=== PATIENT | male | born 1965 | race Caucasian/White ===

== ENCOUNTER → 2016-08-01 | Outpatient (CLI) | payer OTHER ==
[2016-08-01 15:44] LABS: MEAN CELL VOLUME 90.9 fL (80-100); MEAN CORPUSCULAR HEMOGLOBIN 30.7 pg (25-34); MEAN CORPUSCULAR HGB CONC 33.7 g/dl (32-36); PLATELET COUNT 202 K/uL (130-400); RED BLOOD COUNT 4.73 M/uL (4.7-6.1); WHITE BLOOD COUNT 8.25 K/uL (4.8-10.8)
[2016-08-01 16:08] LABS: BLOOD UREA NITROGEN 19 mg/dl (7-18); BUN/CREATININE RATIO 15.8 (10-20); CALCIUM 8.7 mg/dl (8.5-10.1); CARBON DIOXIDE 27 mmol/L (21-32); CHLORIDE 106 mmol/L (98-107); GLUCOSE 95 mg/dl (70-99); POTASSIUM 3.9 mmol/L (3.5-5.1); SODIUM 141 mmol/L (136-145)
[2016-08-01 16:17] LABS: PROLACTIN 5.28 ng/mL
[2016-08-01 16:18] LABS: FERRITIN 201.4 ng/ml (8.0-388.0); TOTAL IRON BINDING CAPACITY 370 mcg/dl (250-450)
[2016-08-02 06:36] LABS: ESTIMATED AVERAGE GLUCOSE 137 mg/dl; HA1C FLAG Normal (Normal)
[2016-08-06 00:40] LABS: MICROSOMAL AB <1 IU/ML (<9); SEX HORMONE BINDING GLOB 26 NMOL/L (10-50); TESTOSTERONE,TOTAL 476 ng/dL (250-1100)
== END | disposition home or self-care (01) ==
LOC: C.LAB1850 14:31
PROVIDERS: ATTEND Internal Medicine Endocrinology, Diabetes & Metabolism
DX: E29.1 Testicular hypofunction (principal); E83.51 Hypocalcemia; N64.4 Mastodynia; R94.6 Abnormal results of thyroid function studies; D64.9 Anemia, unspecified